=== PATIENT | male | born 1975 | race Two or more races ===

== ENCOUNTER → 2020-03-07 | Outpatient (CLI) | payer OTHER ==
--- NOTE | 2020-03-07 13:53 | RAD ---
EXAM: 1. BILATERAL DIGITAL DIAGNOSTIC MAMMOGRAPHY. 2. LEFT BREAST ULTRASOUND. HISTORY: Left breast palpable mass. TECHNIQUE: Bilateral full field digital images were obtained in CC and MLO projections. Computer-aided detection was applied. Sonographic evaluation of the left breast was also performed. COMPARISON: None available. This is interpreted as a baseline study. COMPOSITION: A. The breasts are almost entirely fatty. FINDINGS: A skin marker is placed at the site of palpable concern medially on the left. There is no underlying mammographic abnormality. Sonography at this site reveals a mildly hyperechoic focus within the immediately subcutaneous fat. It measures 1.5 x 0.6 x 1.1 cm. This is consistent with mild fat necrosis or an ecchymosis. There is no suspicious sonographic finding. Mild gynecomastia is noted bilaterally. There are no suspicious masses, microcalcifications or architectural distortion. BI-RADS CATEGORY 2: Benign. RECOMMENDATION: 1. The palpable concern likely corresponds with a small region of fat necrosis or ecchymosis. Recommend ongoing clinical follow-up of palpable foci. Sonographic reassessment can be performed if the finding persists or is unstable. Electronically signed by: Jordan Bañuelos MD (03/07/2020 1:49 PM) [id number]
== END | disposition home or self-care (01) ==
LOC: MAMMO 12:31 → EEVIPCON 12:31
PROVIDERS: ATTEND Preventive Medicine Occupational Medicine
DX: R92.2 Inconclusive mammogram (principal); N62 Hypertrophy of breast
CPT/HCPCS: 76641; 77066